=== PATIENT | male | born 1990 | race Caucasian/White ===

== ENCOUNTER 2018-08-22 08:48 | Emergency (ER) | payer OTHER ==
[~2018-08-22] VITALS: Ht 167.6 cm; Wt 95.3 kg
[2018-08-22 09:18] VITALS: Ht 167.6 cm; Wt 95.3 kg
[2018-08-22 11:38] VITALS: BP 129/77
== END 2018-08-22 11:38 | disposition home or self-care (01) ==
LOC: ED 08:48
DX: M77.11 Lateral epicondylitis, right elbow (principal); E78.00 Pure hypercholesterolemia, unspecified; E03.9 Hypothyroidism, unspecified

== ENCOUNTER 2019-02-07 08:00 | Emergency (ER) | payer OTHER ==
[~2019-02-07] VITALS: Ht 167.6 cm; Wt 95.7 kg
[2019-02-07 08:08] VITALS: Ht 167.6 cm; Wt 95.7 kg
[2019-02-07 10:41] VITALS: BP 114/67
== END 2019-02-07 10:41 | disposition home or self-care (01) ==
LOC: ED 08:00
DX: M54.16 Radiculopathy, lumbar region (principal); M51.36 Other intervertebral disc degeneration, lumbar region; E78.00 Pure hypercholesterolemia, unspecified; E03.9 Hypothyroidism, unspecified; E11.9 Type 2 diabetes mellitus without complications; E66.9 Obesity, unspecified; Z68.34 Body mass index [BMI] 34.0-34.9, adult
CPT/HCPCS: J1100; J1885